=== PATIENT | male | born 1975 | race Caucasian/White ===

== ENCOUNTER 2019-08-24 05:50 | Day surgery (SDC) | payer OTHER ==
[2019-08-24] MEDS ORDERED: PERCOCET 5-3251 EACH PO (10:13)
[2019-08-24] MEDS ORDERED: COLACE100 MG PO (10:13)
== END 2019-08-24 17:00 | disposition home or self-care (01) ==
LOC: CIR.AMB 05:50
PROVIDERS: ATTEND Surgery
DX: K64.8 Other hemorrhoids (principal)

== ENCOUNTER 2020-06-30 09:05 | Day surgery (SDC) | payer OTHER ==
[~2020-06-30 09:05] MED LIST: COLACE100 MG PO; PERCOCET 5-3251 EACH PO
== END 2020-06-30 13:05 | disposition home or self-care (01) ==
LOC: AMB-ENDOS 09:05
PROVIDERS: ATTEND Surgery
DX: K62.89 Other specified diseases of anus and rectum (principal); K64.8 Other hemorrhoids; Z20.822 Contact with and (suspected) exposure to COVID-19